=== PATIENT | female | born 1965 | race Hispanic/Latino ===

== ENCOUNTER 2018-03-08 03:29 | Emergency (ER) | payer SELFPAY ==
[~2018-03-08 03:29] MED LIST: LISI10TA7 PO
[2018-03-08] MEDS ORDERED: ONDANSETRON ODT 4 MG TAB ONE (03:52)
[2018-03-08] MEDS ORDERED: LIDOCAINE HCL 1% 20 ML VIAL ONE (03:52)
[2018-03-08] MEDS ORDERED: CEFTRIAXONE SODIUM 1 GM ONE (03:52)
[2018-03-08 03:53] LABS: APPEARANCE,URINE Cloudy (CLEAR); BILIRUBIN,URINE Small (NEGATIVE); COLOR,URINE Dark Yellow (YELLOW); GLUCOSE, URINE (UA) Negative (NEGATIVE); KETONES,URINE Negative (NEGATIVE); LEUKOCYTE ESTERASE ,URINE Large (NEGATIVE); NITRATE,URINE Positive (NEGATIVE); OCCULT BLOOD,URINE Moderate (NEGATIVE); PH,URINE 6.5 (5.0-8.0); PROTEIN,URINE POS 2+ (NEGATIVE)
[2018-03-08 04:03] LABS: BACTERIA,URINE Few /HPF (None Seen); MUCUS,URINE Rare LPF (None Seen); SQUAMOUS EPITHELIAL CELL,UR Few /HPF (0-2); WBC,URINE 26-50 /HPF (0-1)
== END 2018-03-08 04:17 | disposition home or self-care (01) ==
LOC: EDH 03:29
DX: N39.0 Urinary tract infection, site not specified (principal); I10 Essential (primary) hypertension; Z72.0 Tobacco use; Z90.710 Acquired absence of both cervix and uterus
CPT/HCPCS: 81001; 96372; 99283; J0696

== ENCOUNTER 2018-11-30 20:05 | Emergency (ER) | payer OTHER ==
[2018-11-30] MEDS ORDERED: SODIUM CHLORIDE 0.9% 1000ML 1,000 ML IV ONE ×2 (20:36→22:01)
[2018-11-30 20:41] LABS: BASOPHILS % (AUTO) 0.6 % (0.0-5.0); EOSINOPHILS % (AUTO) 1.4 % (0.0-8.0); HEMATOCRIT 42.5 % (36-48); LYMPHOCYTES % (AUTO) 33.2 % (21.0-51.0); MEAN CORPUSCULAR HEMOGLOBIN 31.8 pg (27.0-33.0); MEAN CORPUSCULAR VOLUME 90.8 fL (79-99); MONOCYTES % (AUTO) 3.7 % (3.0-13.0); NEUTROPHILS % (AUTO) 61.1 % (40.0-77.0); NUCLEATED RED BLOOD CELLS 0.1 % (0.0-0.19); PLATELET COUNT (AUTO) 254 K/uL (130-400); RED BLOOD CELL COUNT(AUTO) 4.69 MIL/uL (4.00-5.50); RED CELL DISTRIBUTION WIDTH 12.5 % (11.0-15.5); WHITE BLOOD COUNT (AUTO) 6.8 K/uL (4.8-10.8)
[2018-11-30 21:09] LABS: ALBUMIN 3.9 g/dL (3.5-5.0); BILIRUBIN,TOTAL 0.3 mg/dL (0.2-1.0); CREATININE 1.2 mg/dL (0.5-1.5); POTASSIUM 3.9 mmol/L (3.5-5.1); TOTAL PROTEIN, SERUM 7.7 g/dL (6.0-8.3)
[2018-11-30] MEDS ORDERED: INSULIN HUMULIN R 100 UNIT/ML 3ML ONE (22:02)
[2018-11-30 22:53] LABS: BILIRUBIN,URINE Negative (NEGATIVE); COLOR,URINE Yellow (YELLOW); GLUCOSE, URINE (UA) >=1000 mg/dL (NEGATIVE); KETONES,URINE Negative (NEGATIVE); LEUKOCYTE ESTERASE ,URINE Negative (NEGATIVE); NITRATE,URINE Negative (NEGATIVE); OCCULT BLOOD,URINE Negative (NEGATIVE); PH,URINE 5.5 (5.0-8.0); PROTEIN,URINE Negative (NEGATIVE)
[2018-11-30 22:54] LABS: APPEARANCE,URINE CLEAR (CLEAR)
[2018-11-30 23:05] LABS: BACTERIA,URINE Few /HPF (None Seen); RBC,URINE 0-1 /HPF (0-1); SQUAMOUS EPITHELIAL CELL,UR 0-2 /HPF (0-2); WBC,URINE 0-1 /HPF (0-1)
== END 2018-12-01 00:16 | disposition home or self-care (01) ==
LOC: EDH 20:05
DX: I10 Essential (primary) hypertension (principal); R73.9 Hyperglycemia, unspecified; H53.8 Other visual disturbances; Z90.49 Acquired absence of other specified parts of digestive tract; Z90.710 Acquired absence of both cervix and uterus; Z72.0 Tobacco use
CPT/HCPCS: 36415; 80053; 81001; 82550; 82948 ×3; 84484; 85025; 93005; 96374; 99284; J1815; J7030 ×2

== ENCOUNTER 2019-07-12 09:41 | Inpatient (IN) | payer MEDICARE ==
[~2019-07-12] VITALS: Ht 157.5 cm; Wt 100.2 kg
[2019-07-12 10:01] LABS: BASOPHILS % (AUTO) 0.4 % (0.0-5.0); HEMATOCRIT 41.5 % (36-48); LYMPHOCYTES % (AUTO) 29.1 % (21.0-51.0); MEAN CORPUSCULAR HEMOGLOBIN 32.8 pg (27.0-33.0); MEAN CORPUSCULAR VOLUME 93.8 fL (79-99); MONOCYTES % (AUTO) 2.9 % (3.0-13.0); NEUTROPHILS % (AUTO) 64.6 % (40.0-77.0); PLATELET COUNT (AUTO) 230 K/uL (130-400); RED BLOOD CELL COUNT(AUTO) 4.42 MIL/uL (4.00-5.50); RED CELL DISTRIBUTION WIDTH 13.2 % (11.0-15.5); WHITE BLOOD COUNT (AUTO) 5.8 K/uL (4.8-10.8)
[2019-07-12] MEDS ORDERED: NITROGLYCERIN 1GM/1 INCH PACKET TD ONE (10:02)
[2019-07-12] MEDS ORDERED: ASPIRIN 325 MG TABLET ONE (10:02)
[2019-07-12 10:08] LABS: CREATININE 1.1 mg/dL (0.5-1.5); POTASSIUM 3.7 mmol/L (3.5-5.1)
[2019-07-12 10:10] LABS: INR 0.96 (0.85-1.15); PARTIAL THROMBOPLASTIN TIME 25.4 SEC (26.3-35.5); PROTHROMBIN TIME 10.1 SEC (9.6-11.6)
[2019-07-12 10:12] LABS: ALBUMIN 3.6 g/dL (3.5-5.0); BILIRUBIN,TOTAL 0.3 mg/dL (0.2-1.0); TOTAL PROTEIN, SERUM 7.4 g/dL (6.0-8.3)
[2019-07-12] MEDS ORDERED: MAG HYDROX/AL HYDROX/SIMETH ES 30 ML SUSP UDCUP PO PRN (12:30)
[2019-07-12] MEDS ORDERED: ONDANSETRON HCL 4 MG/2 ML VIAL IV PRN (12:30)
[2019-07-12] MEDS ORDERED: GUAIFENESIN-DM 200/20 MG 10 ML PO PRN (12:30)
[2019-07-12] MEDS ORDERED: DiphenhydrAMINE HCL 50 MG/ML VIAL IV PRN (12:30)
[2019-07-12] MEDS ORDERED: LACTULOSE 20 GM/30 ML UDCUP PO PRN (12:30)
[2019-07-12] MEDS ORDERED: ACETAMINOPHEN 325 MG TAB PO PRN (12:30)
[2019-07-12] MEDS ORDERED: NITROGLYCERIN 0.4 MG SL TAB SL PRN (12:30)
[2019-07-12] MEDS ORDERED: DIPHENHYDRAMINE HCL 25 MG CAPSULE PO PRN (12:30)
[2019-07-12] MEDS ORDERED: HYDRALAZINE HCL 20 MG/ML VIAL IV PRN (12:30)
[2019-07-12 19:54] VITALS: BP 153/91
[2019-07-12] MEDS ORDERED: GLYB2.5 PO (19:59)
[2019-07-12] MEDS ORDERED: METF-446 PO (19:59)
--- NOTE | 2019-07-12 20:01 | NUR ---
ADMISSION ASSESSMENT PATIENT ARRIVED BY STRETCHER FROM EMERGENCY ROOM. PATIENT IS CALM AND ALERT AND ORIENTED X4. NO COMPLAINTS OF CHEST PAIN AT THIS TIME. NO SIGNS OF DISTRESS. NO SHORTNESS OF BREATH. PATIENT WAS TRANSFERRED TO BED. PLACED ON TELEMETRY AND MADE COMFORTABLE. CALL LIGHT GIVEN TO PAIN EXPLAINED TO APPROPRIATELY CALL NURSE FOR ANY NEEDS. BEDSIDE TABLE AND PERSONAL BELONGINGS WITHIN REACH. NO QUESTIONS, CONCERNS, OR NEEDS AT THIS TIME.
[2019-07-12] MEDS: FAMOTIDINE 20MG TAB 20 MG TAB PO SCH (20:30)
[2019-07-12] MEDS: METOPROLOL TARTRATE 25 MG TAB PO SCH (20:30)
[2019-07-12] MEDS: ACETAMINOPHEN 325 MG TAB PO PRN (20:45)
[2019-07-12 23:51] VITALS: BP 142/77
[2019-07-13 03:58] VITALS: BP 128/78
[2019-07-13 04:54] LABS: BASOPHILS % (AUTO) 0.6 % (0.0-5.0); EOSINOPHILS % (AUTO) 3.5 % (0.0-8.0); HEMATOCRIT 39.2 % (36-48); LYMPHOCYTES % (AUTO) 40.5 % (21.0-51.0); MEAN CORPUSCULAR HEMOGLOBIN 32.7 pg (27.0-33.0); MEAN CORPUSCULAR HGB CONC 35.3 g/dL (32.0-36.0); MEAN CORPUSCULAR VOLUME 92.8 fL (79-99); MONOCYTES % (AUTO) 4.9 % (3.0-13.0); NEUTROPHILS % (AUTO) 50.5 % (40.0-77.0); PLATELET COUNT (AUTO) 225 K/uL (130-400); RED BLOOD CELL COUNT(AUTO) 4.22 MIL/uL (4.00-5.50); RED CELL DISTRIBUTION WIDTH 13.2 % (11.0-15.5); WHITE BLOOD COUNT (AUTO) 6.3 K/uL (4.8-10.8)
[2019-07-13 05:05] LABS: POTASSIUM 3.7 mmol/L (3.5-5.1)
[2019-07-13 07:20] VITALS: BP 123/67
--- NOTE | 2019-07-13 07:30 | NUR ---
MD VISIT DR DOBBINS IN TO SEE PT. UPDATED ON PT'S STATUS & PLAN OF CARE REVIEWED. DR DOBBINS REVIEWED PLAN OF CARE W/PT. PT ADMITS TO BEING CURRENT SMOKER & DENIES HAVING A ATM MANAGER. PT TO HAVE TAYA SCAN TODAY AND POSS [facility] BY DR DOBBINS TOMORROW DEPENDING UPON TAYA SCAN RESULTS.
--- NOTE | 2019-07-13 07:35 | NUR ---
AM ASSESSMENT PT LAYING IN BED, HOB ELEVATED 30 DEGREES, RESTING. A/O X 3. NO SOB. NO DISTRESS NOTED. DENIES CHEST PAIN OR DISCOMFORT. DENIES PALPITATIONS. TELE: SR 60s. DENIES N/V AND/OR DIARRHEA. NPO STATUS EXPLAINED, PT TO HAVE TAYA SCAN LATER TODAY. PT DENIES CAFFEINE INTAKE LAST 24 HRS. UP AD LEXIE. INSTRUCTED TO CALL FOR ASSISTANCE. CALL KAUR W/IN REACH.
[2019-07-13] MEDS ORDERED: REGADENOSON 0.4 MG/5 ML PF SYG IVP SCH (10:30)
[2019-07-13 11:20] VITALS: BP 149/102
[2019-07-13] MEDS: METOPROLOL TARTRATE 25 MG TAB PO SCH ×2 (11:34→20:44)
[2019-07-13 15:00] VITALS: BP 135/84
[2019-07-13] MEDS: ASPIRIN 325 MG TABLET PO SCH (15:45)
[2019-07-13] MEDS: FAMOTIDINE 20MG TAB 20 MG TAB PO SCH ×2 (15:45→20:44)
[2019-07-13] MEDS: ENOXAPARIN SODIUM 40 MG/0.4 ML SYRINGE SQ SCH (15:46)
[2019-07-13] MEDS ORDERED: POTASSIUM CHLORIDE 20MEQ/100ML 100 ML IV PRN ×2 (17:15)
[2019-07-13] MEDS ORDERED: POTASSIUM CHLORIDE 10% ELIXIR 20 MEQ/15 ML UDCUP PO PRN (17:15)
[2019-07-13] MEDS ORDERED: POTASSIUM CHLORIDE 20 MEQ ERTAB PO PRN (17:15)
[2019-07-13] MEDS ORDERED: GLUCAGON 1MG KIT 1 MG ML IM PRN (17:15)
[2019-07-13] MEDS ORDERED: DEXTROSE 50%-WATER 50 ML DISP.SYRIN IV PRN (17:15)
[2019-07-13] MEDS ORDERED: LISINOPRIL 20 MG TABLET PO SCH (17:45)
[2019-07-13 19:38] VITALS: BP 151/88
--- NOTE | 2019-07-13 19:42 | NUR ---
cm note met with patient and states resides at home alone, independent with adls and self care.no dme. dc plan is back to home. no dc needs. Addendum: 07/13/19 at 1944 by RAKESH TRINH CM Amended: Links added.
[2019-07-13] MEDS: GUAIFENESIN/DEXTROMETHORPHAN 1 EACH TAB.SR.12H PO SCH (20:44)
[2019-07-13] MEDS: INSULIN HUMULIN R 100 UNIT/ML 3ML SQ SCH (21:00)
[2019-07-13 23:35] VITALS: BP 117/63
[2019-07-14 04:02] VITALS: BP 111/69
[2019-07-14 04:58] LABS: BASOPHILS % (AUTO) 0.4 % (0.0-5.0); EOSINOPHILS % (AUTO) 2.7 % (0.0-8.0); MEAN CORPUSCULAR HEMOGLOBIN 32.4 pg (27.0-33.0); MEAN CORPUSCULAR HGB CONC 34.3 g/dL (32.0-36.0); MEAN CORPUSCULAR VOLUME 94.3 fL (79-99); MONOCYTES % (AUTO) 4.9 % (3.0-13.0); PLATELET COUNT (AUTO) 225 K/uL (130-400); RED BLOOD CELL COUNT(AUTO) 4.24 MIL/uL (4.00-5.50); RED CELL DISTRIBUTION WIDTH 12.9 % (11.0-15.5); WHITE BLOOD COUNT (AUTO) 6.4 K/uL (4.8-10.8)
[2019-07-14 05:07] LABS: POTASSIUM 3.8 mmol/L (3.5-5.1)
[2019-07-14] MEDS: INSULIN HUMULIN R 100 UNIT/ML 3ML SQ SCH ×4 (05:59→21:00)
[2019-07-14 07:18] VITALS: BP 120/65
[2019-07-14] MEDS ORDERED: LISINOPRIL 20 MG TABLET PO SCH (09:00)
[2019-07-14] MEDS: GUAIFENESIN/DEXTROMETHORPHAN 1 EACH TAB.SR.12H PO SCH ×2 (09:00→20:25)
[2019-07-14] MEDS: METOPROLOL TARTRATE 25 MG TAB PO SCH ×2 (09:12→20:21)
[2019-07-14] MEDS: ASPIRIN 325 MG TABLET PO SCH (09:12)
[2019-07-14] MEDS: FAMOTIDINE 20MG TAB 20 MG TAB PO SCH ×2 (09:13→20:20)
[2019-07-14] MEDS: ENOXAPARIN SODIUM 40 MG/0.4 ML SYRINGE SQ SCH (09:15)
[2019-07-14 11:13] VITALS: BP 135/72
[2019-07-14 14:58] VITALS: BP 134/82
[2019-07-14 19:25] VITALS: BP 149/117
--- NOTE | 2019-07-14 20:00 | NUR ---
PT STATES SHE WANTED TO LEAVE AMA. SPOKE TO PT. AWARE OF AMA FORM. PT DECIDED TO STAY DUE TO BILLING ISSUES REGARDING MEDICARE.
[2019-07-14] MEDS: ACETAMINOPHEN 325 MG TAB PO PRN (20:21)
--- NOTE | 2019-07-14 22:00 | NUR ---
DR. NANCY PAK. SPOKE TO PT REGARDING PLAN OF CARE. DISCUSSES LEXISCAN RESULTS. NOTIFIED MIGHT BE POSSIBLE CANDIDATE FOR LHC. PT STARTED ON NEW MEDS. PENDING TO SEE DR. DOBBINS.
[2019-07-14] MEDS ORDERED: TEMAZEPAM 7.5 MG CAPSULE PO PRN (22:15)
[2019-07-14] MEDS ORDERED: ATORVASTATIN CALCIUM 20 MG TABLET PO SCH (22:15)
[2019-07-14 23:12] VITALS: BP 127/66
[2019-07-15 04:08] VITALS: BP 132/74
[2019-07-15 04:12] LABS: BASOPHILS % (AUTO) 0.4 % (0.0-5.0); EOSINOPHILS % (AUTO) 2.7 % (0.0-8.0); HEMATOCRIT 39.4 % (36-48); LYMPHOCYTES % (AUTO) 41.5 % (21.0-51.0); MEAN CORPUSCULAR HEMOGLOBIN 32.5 pg (27.0-33.0); MONOCYTES % (AUTO) 5.1 % (3.0-13.0); NEUTROPHILS % (AUTO) 50.3 % (40.0-77.0); PLATELET COUNT (AUTO) 233 K/uL (130-400); RED BLOOD CELL COUNT(AUTO) 4.24 MIL/uL (4.00-5.50); RED CELL DISTRIBUTION WIDTH 12.8 % (11.0-15.5); WHITE BLOOD COUNT (AUTO) 5.9 K/uL (4.8-10.8)
[2019-07-15 04:26] LABS: POTASSIUM 4.2 mmol/L (3.5-5.1)
[2019-07-15 05:01] LABS: HEMOGLOBIN A1C 6.2 % (4.0-6.0)
[2019-07-15] MEDS: INSULIN HUMULIN R 100 UNIT/ML 3ML SQ SCH (06:46)
[2019-07-15 07:27] VITALS: BP 133/83
--- NOTE | 2019-07-15 08:15 | NUR ---
ROUNDS Dr. Bryan in to see pt, updated on plan of care.Okay to be discharged and follow-up in his office. Dr. Lund made aware.
[2019-07-15] MEDS ORDERED: LISINOPRIL 20 MG TABLET PO SCH (09:00)
[2019-07-15] MEDS: ENOXAPARIN SODIUM 40 MG/0.4 ML SYRINGE SQ SCH (09:37)
[2019-07-15] MEDS: ASPIRIN 325 MG TABLET PO SCH (09:38)
[2019-07-15] MEDS: METOPROLOL TARTRATE 25 MG TAB PO SCH (09:38)
[2019-07-15] MEDS: FAMOTIDINE 20MG TAB 20 MG TAB PO SCH (09:38)
[2019-07-15] MEDS ORDERED: ATOR20TA65 PO (11:20)
[2019-07-15] MEDS ORDERED: METO25 PO (11:20)
[2019-07-15] MEDS ORDERED: LISI40TA4 PO (11:20)
[2019-07-15] MEDS ORDERED: AEC81 PO (11:20)
--- NOTE | 2019-07-15 11:45 | NUR ---
DISCHARGE Pt taken to lobby in wheelchair, in no distress. Instructions given, verbalized understanding. All belongings given to pt. Telepack and peripheral IV removed, catheter intact upon removal.
== END 2019-07-15 12:11 | disposition home or self-care (01) | DRG 281 ==
LOC: EDH 09:41 → EDHIP 12:21 → 2DH 19:52
PROVIDERS: ADMIT Family Medicine; ATTEND Family Medicine
DX: I21.4 Non-ST elevation (NSTEMI) myocardial infarction (principal); Z68.41 Body mass index [BMI] 40.0-44.9, adult; I25.10 Atherosclerotic heart disease of native coronary artery without angina pectoris; F41.9 Anxiety disorder, unspecified; F17.210 Nicotine dependence, cigarettes, uncomplicated; M19.90 Unspecified osteoarthritis, unspecified site; I10 Essential (primary) hypertension; E78.5 Hyperlipidemia, unspecified; E11.649 Type 2 diabetes mellitus with hypoglycemia without coma; E66.9 Obesity, unspecified
CPT/HCPCS: 36415; 71045; 78452; 80048; 80053; 80061; 82550; 82948; 83036; 83880; 84484; 85025; 85610; 85730; 87486; 87581; 87633; 87798; 93005; 93017; 96374; 99291; A9500; G0378; J1650; J1815; J2785

== ENCOUNTER 2019-07-20 07:16 | Inpatient (IN) | payer MEDICARE ==
[2019-07-20] VITALS (10 sets, daily range): BP systolic 110–159; BP diastolic 55–89
[~2019-07-20] VITALS: Ht 157.5 cm; Wt 95.7 kg
[~2019-07-20 07:16] MED LIST changes: +AEC81 PO; +ATOR20TA65 PO; -LISI10TA7 PO; +LISI40TA4 PO; +METF-446 PO; +METO25 PO
[2019-07-20] MEDS ORDERED: ASPIRIN 325 MG TABLET ONE (07:30)
[2019-07-20] MEDS ORDERED: FENTANYL CITRATE PF 50 MCG/1 ML 2ML VIAL ONE ×2 (07:31→09:24)
[2019-07-20] MEDS ORDERED: NITROGLYCERIN 0.4 MG SL TAB SL ONE (07:33)
[2019-07-20] MEDS ORDERED: METOPROLOL TARTRATE 1 MG/ML 5ML VIAL IV ONE (07:33)
[2019-07-20] MEDS ORDERED: NITROGLYCERIN 50 MG/D5% WATER 1 BOT ONE (07:34)
[2019-07-20 07:49] LABS: BASOPHILS % (AUTO) 0.7 % (0.0-5.0); EOSINOPHILS % (AUTO) 2.8 % (0.0-8.0); HEMATOCRIT 44.6 % (36-48); LYMPHOCYTES % (AUTO) 32.2 % (21.0-51.0); MEAN CORPUSCULAR HEMOGLOBIN 32.6 pg (27.0-33.0); MEAN CORPUSCULAR HGB CONC 34.4 g/dL (32.0-36.0); MEAN CORPUSCULAR VOLUME 94.6 fL (79-99); NEUTROPHILS % (AUTO) 59.3 % (40.0-77.0); NUCLEATED RED BLOOD CELLS 0.1 % (0.0-0.19); PLATELET COUNT (AUTO) 267 K/uL (130-400); RED BLOOD CELL COUNT(AUTO) 4.71 MIL/uL (4.00-5.50); RED CELL DISTRIBUTION WIDTH 12.7 % (11.0-15.5)
[2019-07-20 08:12] LABS: B-TYPE NATRIURETIC PEPTIDE 23 pg/mL (0-100)
[2019-07-20] MEDS ORDERED: IOHEXOL 350 MG/ML 100ML INFUS..BTL IV ONE (08:19)
[2019-07-20] MEDS ORDERED: LIDOCAINE HCL 2% 20ML ONE (08:19)
[2019-07-20] MEDS ORDERED: IOHEXOL-350 50ML VIAL IV ONE (08:19)
[2019-07-20] MEDS ORDERED: NITROGLYCERIN 5 MG/ML 10 ML VIAL IV ONE (08:19)
[2019-07-20 08:23] LABS: INR 0.95 (0.85-1.15)
[2019-07-20 08:28] LABS: CREATININE 1.1 mg/dL (0.5-1.5)
[2019-07-20 08:32] LABS: BILIRUBIN,TOTAL 0.4 mg/dL (0.2-1.0)
[2019-07-20] MEDS ORDERED: BIVALIRUDIN 250 MG/VIAL IV ONE (08:40)
[2019-07-20] MEDS ORDERED: ASPIRIN 325MG EC TAB 325 MG TABLET.DR PO ONE (08:56)
[2019-07-20] MEDS ORDERED: PRASUGREL HCL 10 MG TABLET ONE (08:56)
[2019-07-20] MEDS ORDERED: MIDAZOLAM HCL 1 MG/ML 2ML VIAL ONE (09:03)
[2019-07-20] MEDS ORDERED: CLOPIDOGREL BISULFATE 300 MG TAB ONE (09:18)
[2019-07-20] MEDS ORDERED: ADENOSINE 90MG/30ML VIAL IV ONE (09:20)
[2019-07-20] MEDS ORDERED: SODIUM CHLORIDE 0.9% 1000ML 1,000 ML IV SCH (10:12)
[2019-07-20] MEDS ORDERED: ACETAMINOPHEN 325 MG TAB PO PRN (10:15)
--- NOTE | 2019-07-20 11:20 | NUR ---
RECEIVED PATIENT FROM LAUNCH LEADER TRANSPORTED BY RAINA SEALS AND YOEL RN S/P LEFT HEART CATH BY DR. MCCLAIN. RIGHT GROIN DRESSING IS CLEAN, DRY, AND INTACT. NO HEMATOMA, BLEEDING, NOR OOZING TO SITE. FULL ASSESSMENT DONE. INFORMED PATIENT THAT SHE HAS TO BE BEDREST UNTIL 1700. PER YOEL RN, PATIENT HAS BEEN TRYING TO URINATE BUT IS NOT ABLE TO. BEDPAN IN PLACED. FAUCET TURNED ON TO STIMULATE. VITALS MONITORED. CALL LIGHT WITHIN REACH.
--- NOTE | 2019-07-20 11:30 | NUR ---
PATIENT IS CRYING OF SEVERE DISCOMFORT DUE TO INABILITY TO URINATE. INSERTED MORALES CATHETER ORDERED BY DR. MCCLAIN. PROCEDURE DONE ASEPTICALLY. SOON URINE STARTED DRAINING IN THE BAG, PATIENT CRIED MORE AND BEGGED FOR MORALES CATHETER TO BE REMOVED AND FOR HER TO GET UP FROM BED TO TRY TO URINATE IN THE TOILET. SHE SAID IT IS "BURNING REALLY BAD". I INFORMED PATIENT THAT IF I REMOVED MORALES CATHETER I WOULD HAVE TO USE BEDPAN BECAUSE SHE IS STILL ON BEDREST. PATIENT AGREED TO KEEP MORALES CATHETER IN PLACE. SECURED WELL TO RIGHT THIGH.
--- NOTE | 2019-07-20 11:35 | NUR ---
PATIENT CALLED CRYING ONCE AGAIN AND SCREAMING FOR MORALES CATHETER TO BE REMOVED SHE CONTINUES TO FEEL URETHRAL PAIN. MORALES BAG HAS 600 CLEAR URINE OUTPUT. I SPOKE TO DR. BADILLO ABOUT THIS AND MD SAID TO REMOVE MORALES CATHETER. REMOVED MORALES ORDERED. PATIENT VERBALIZED RELIEF.
--- NOTE | 2019-07-20 13:48 | NUR ---
PATIENT COMPLAINS THAT SHE FEELS THAT HER BLADDER IS FULL AND THAT SHE WOULD LIKE TO HAVE A MORALES CATHETER INSERTED ONCE AGAIN. I INFORMED PATIENT THAT WE CAN USE A BEDPAN AT THIS TIME I DO NOT HAVE AN ORDER FOR CATHETER PLACEMENT AT THIS TIME. SHE SAID THAT SHE FEELS MISERABLE AND THAT SHE WILL NOT BE ABLE TO URINATE IN THE BEDPAN. INFORMED DR. BADILLO AND ORDERED FOR MORALES TO BE INSERTED.
--- NOTE | 2019-07-20 13:50 | NUR ---
INSERTED 16F MORALES CATHETER USING ASEPTIC TECHNIQUE. PATIENT DRAINED 200ML OF URINE. ONCE AGAIN, PATIENT BEGGED FOR MORALES TO BE REMOVED BECAUSE OF BURNING SENSATION. AJAY SEALS AND I SPOKE TO PATIENT ABOUT THE RISK OF INFECTION DUE TO MULTIPLE INSERTS AND REMOVAL OF MORALES CATHETER. PATIENT AGREED TO KEEP MORALES CATHETER. URINE SAMPLE SENT FOR URINALYSIS AND CULTURE. SECURED APPROPRIATELY.
[2019-07-20 16:47] LABS: APPEARANCE,URINE Clear (CLEAR); BILIRUBIN,URINE Negative (NEGATIVE); COLOR,URINE Yellow (YELLOW); GLUCOSE, URINE (UA) Negative (NEGATIVE); KETONES,URINE Trace mg/dL (NEGATIVE); LEUKOCYTE ESTERASE ,URINE Small (NEGATIVE); NITRATE,URINE Negative (NEGATIVE); OCCULT BLOOD,URINE Large (NEGATIVE); PROTEIN,URINE Negative (NEGATIVE); UROBILINOGEN,URINE 0.2 mg/dL (0.2-1.0)
[2019-07-20 17:15] LABS: BACTERIA,URINE Few /HPF (None Seen)
[2019-07-20 17:16] LABS: SQUAMOUS EPITHELIAL CELL,UR Rare /HPF (0-2)
[2019-07-20] MEDS: METOPROLOL TARTRATE 25 MG TAB PO SCH (20:30)
[2019-07-20] MEDS ORDERED: ATORVASTATIN CALCIUM 20 MG TABLET PO SCH (21:00)
[2019-07-21 03:40] VITALS: BP 124/66
[2019-07-21 04:20] LABS: HEMATOCRIT 39.9 % (36-48); MEAN CORPUSCULAR HEMOGLOBIN 32.8 pg (27.0-33.0); MEAN CORPUSCULAR VOLUME 93.7 fL (79-99); PLATELET COUNT (AUTO) 254 K/uL (130-400); RED BLOOD CELL COUNT(AUTO) 4.25 MIL/uL (4.00-5.50); RED CELL DISTRIBUTION WIDTH 12.9 % (11.0-15.5); WHITE BLOOD COUNT (AUTO) 8.1 K/uL (4.8-10.8)
[2019-07-21 04:33] LABS: POTASSIUM 3.9 mmol/L (3.5-5.1)
--- NOTE | 2019-07-21 05:45 | NUR ---
Orders Per HOUSEKEEPING SUPERVISOR Nathen curry to D/C murphy catheter
--- NOTE | 2019-07-21 05:51 | NUR ---
S/p Heart Cath Patient groin soft, pedal pulses strong. No s/s bleeding or hematoma. Dressing clean and dry.
[2019-07-21 08:16] VITALS: BP 131/66
[2019-07-21] MEDS: METOPROLOL TARTRATE 25 MG TAB PO SCH (08:27)
--- NOTE | 2019-07-21 08:30 | NUR ---
AM ASSESSMENT PT LAYING IN BED, HOB ELEVATED 30 DEGREES, RESTING. A/O X 3. NO SOB. NO DISTRESS NOTED. DENIES INCISIONAL PAIN OR DISCOMFORT. DENIES PALPITATIONS. TELE: SR 80s. DENIES N/V AND/OR DIARRHEA. RT GROIN DSG DRY & INTACT. PUNCTURE SITE SOFT, NON-TENDER. NO BLEEDING, NO HEMATOMA NOTED. (+) STRONG BILATERAL PEDAL PULSES. BLE PINK & WARM TO TOUCH. UP AD LEXIE. INSTRUCTED TO CALL FOR ASSISTANCE. CALL KAUR W/IN REACH.
[2019-07-21] MEDS ORDERED: PRASUGREL HCL 10 MG TABLET PO SCH (09:00)
[2019-07-21] MEDS ORDERED: ASPIRIN 81 MG EC TAB PO SCH (09:00)
[2019-07-21] MEDS ORDERED: LISINOPRIL 10 MG TABLET PO SCH (09:00)
[2019-07-21 11:00] VITALS: BP 110/63
--- NOTE | 2019-07-21 11:08 | NUR ---
CARDIOLOGY DR DOBBINS'S OFFICE CALLED. PER 'S OFFICE, PT TO BE SEEN & F/U W/[facility] , [facility] W/STENT PERFORMED BY DR Reynaldo MCCLAIN. PT NOT AN "ESTABLISHED" DR DOBBINS PT. PT HAD NOT YET ATTENDED 1st APPT W/DR DOBBINS, APPT SCHEDULED FOR 08/2019. [facility] NOTIFIED. Shala SEVERINO CN ALSO UPDATED.
[2019-07-21] MEDS ORDERED: GLUCAGON 1MG KIT 1 MG ML IM PRN (11:45)
[2019-07-21] MEDS ORDERED: DEXTROSE 50%-WATER 50 ML DISP.SYRIN IV PRN (11:45)
[2019-07-21 15:00] VITALS: BP 118/65
[2019-07-21] MEDS ORDERED: LISI10TA7 PO (15:53)
[2019-07-21] MEDS ORDERED: TICA90TA PO (16:01)
[2019-07-21] MEDS ORDERED: INSULIN HUMULIN R 100 UNIT/ML 3ML SQ SCH (16:30)
--- NOTE | 2019-07-21 16:59 | NUR ---
DC PLAN VISITED WITH PATIENT. PATIENT LIVES ALONE. INDEPENDENT ABLE TO PERFORM ADL'S. PATIENT HAS NO SERVICES OR DME'S. FEELS SAFE TO RETURN HOME. WENT OVER MEDS WITH DR. BLACK. CHANGED TO [facility] GAVE COUPON TO PATIENT. CAN USE MEDICAID OR SELF PAY WITH COUPON. Addendum: 07/21/19 at 1701 by GREGG GILL RN CM Amended: Links added.
--- NOTE | 2019-07-21 17:10 | NUR ---
DISCHARGE VERBAL & WRITTEN DISCHARGE INSTRUCTIONS REVIEWED & GIVEN TO PT. QUESTIONS ENCOURAGED & CLARIFIED. PROPER CARE & ACTIVITY AFTER LHC WITH STENT REVIEWED. NEW PRESCRIBED MEDICATIONS REVIEWED. PT INFORMED PRESCRIPTION TRANSMITTED TO PHARMACY IN FILE. REINFORCED IMPORTANCE OF TAKING MEDICATIONS PRESCRIBED BY MD. STATES UNDERSTANDING. TELE MARY BETH REMOVED. IV DISCONTINUED. PT TO GATHER PERSONAL BELONGINGS. WILL NOTIFY STAFF WHEN DAUGHTER ARRIVES TO TAKE PT HOME.
--- NOTE | 2019-07-21 17:35 | NUR ---
DISCHARGE DAUGHTER HERE TO TAKE PT HOME. PT TAKEN TO PRIVATE VEHICLE VIA WC BY Yasir KILGORE PCP. NO DISTRESS NOTED.
== END 2019-07-21 17:35 | disposition home or self-care (01) | DRG 246 ==
LOC: EDH 07:16 → OBSVTOIN 08:10 → EDHIP 08:10 → 2DH 10:41
PROVIDERS: ADMIT Internal Medicine; ATTEND Internal Medicine
PROC: 4A023N7 Measurement of Cardiac Sampling and Pressure, Left Heart, Percutaneous Approach (ICD-10-PCS; principal; 2019-07-20)
PROC: 027034Z Dilation of Coronary Artery, One Artery with Drug-eluting Intraluminal Device, Percutaneous Approach (ICD-10-PCS; 2019-07-20)
PROC: B2111ZZ Fluoroscopy of Multiple Coronary Arteries using Low Osmolar Contrast (ICD-10-PCS; 2019-07-20)
PROC: B2151ZZ Fluoroscopy of Left Heart using Low Osmolar Contrast (ICD-10-PCS; 2019-07-20)
DX: I22.2 Subsequent non-ST elevation (NSTEMI) myocardial infarction (principal); I50.31 Acute diastolic (congestive) heart failure; I16.1 Hypertensive emergency; I21.9 Acute myocardial infarction, unspecified; I25.110 Atherosclerotic heart disease of native coronary artery with unstable angina pectoris; E03.9 Hypothyroidism, unspecified; E11.9 Type 2 diabetes mellitus without complications; F17.200 Nicotine dependence, unspecified, uncomplicated; M19.90 Unspecified osteoarthritis, unspecified site; E66.9 Obesity, unspecified; E78.5 Hyperlipidemia, unspecified; F41.9 Anxiety disorder, unspecified; Z68.38 Body mass index [BMI] 38.0-38.9, adult; I25.2 Old myocardial infarction; Z90.49 Acquired absence of other specified parts of digestive tract; Z90.710 Acquired absence of both cervix and uterus; I11.0 Hypertensive heart disease with heart failure
CPT/HCPCS: 36415; 71045; 80048; 80053; 81001; 82550; 82948; 83880; 84484; 85025; 85027; 85610; 85730; 87088; 93005; 93458; 93571; 99156; 99157; 99291; A4344; C1725; C1760; C1769; C1887; C1894; C9600; G0378; J0153; J0583; J1644; J2250; J3010; J3490; Q9967

== ENCOUNTER 2019-07-27 03:43 | Emergency (ER) | payer MEDICARE ==
[~2019-07-27 03:43] MED LIST changes: +LISI10TA7 PO; -LISI40TA4 PO; +TICA90TA PO
[2019-07-27] MEDS ORDERED: FAMOTIDINE/PF 20 MG/2 ML VIAL IV ONE (04:00)
[2019-07-27] MEDS ORDERED: METHYLPREDNISOLONE SOD SUCC 125MG/2ML VIAL ONE (04:00)
[2019-07-27] MEDS ORDERED: DiphenhydrAMINE HCL 50 MG/ML VIAL ONE (04:00)
[2019-07-27] MEDS ORDERED: SODIUM CHLORIDE 0.9% 1000ML 1,000 ML IV ONE (04:01)
== END 2019-07-27 06:14 | disposition home or self-care (01) ==
LOC: EDH 03:43
DX: L50.0 Allergic urticaria (principal); F41.9 Anxiety disorder, unspecified; E11.9 Type 2 diabetes mellitus without complications; I10 Essential (primary) hypertension; Z90.49 Acquired absence of other specified parts of digestive tract; Z90.710 Acquired absence of both cervix and uterus; Z87.891 Personal history of nicotine dependence; Z79.899 Other long term (current) drug therapy
CPT/HCPCS: 96374; 96375; 99284; J1200; J2930; J3490; J7030

== ENCOUNTER 2021-05-21 10:01 | Emergency (ER) | payer MEDICARE ==
[~2021-05-21] VITALS: Ht 157.5 cm; Wt 93.0 kg
[~2021-05-21 10:01] MED LIST changes: +LISI10TA24 PO; -LISI10TA7 PO
[2021-05-21 10:04] VITALS: BP 112/52
[2021-05-21 12:19] VITALS: BP 115/56
[2021-05-21] MEDS ORDERED: AMOX-429 PO (12:49)
[2021-05-21] MEDS ORDERED: IBUP-2070 PO (12:49)
== END 2021-05-21 15:21 | disposition home or self-care (01) ==
LOC: EDH 10:01
DX: J01.90 Acute sinusitis, unspecified (principal); I10 Essential (primary) hypertension; E10.9 Type 1 diabetes mellitus without complications; Z79.1 Long term (current) use of non-steroidal anti-inflammatories (NSAID); Z79.82 Long term (current) use of aspirin; Z79.84 Long term (current) use of oral hypoglycemic drugs; Z79.899 Other long term (current) drug therapy; Z98.890 Other specified postprocedural states

== ENCOUNTER 2024-07-29 16:50 | Inpatient (IN) | payer OTHER, MEDICARE ==
[~2024-07-29] VITALS: Ht 162.6 cm; Wt 81.2 kg
[~2024-07-29 16:50] MED LIST changes: +AMOX-429 PO; +IBUP-2070 PO
[2024-07-29 18:21] LABS: BASOPHILS # (AUTO) 0.02 K/uL (0.00-0.20); BASOPHILS % (AUTO) 0.2 % (0.0-5.0); EOSINOPHILS # (AUTO) 0.04 K/uL (0.00-0.70); EOSINOPHILS % (AUTO) 0.4 % (0.0-8.0); HEMATOCRIT 51.7 % (36-48); IMMATURE GRANULOCYTE ABSOLUTE 0.03 K/uL (0-1); LYMPHOCYTES # (AUTO) 2.3 K/uL (1.0-4.8); LYMPHOCYTES % (AUTO) 20.5 % (21.0-51.0); MEAN CORPUSCULAR HEMOGLOBIN 31.4 pg (27.0-33.0); MEAN CORPUSCULAR HGB CONC 35.2 g/dL (32.0-36.0); MEAN CORPUSCULAR VOLUME 89.1 fL (79-99); MONOCYTES # (AUTO) 0.3 K/uL (0.1-1.0); MONOCYTES % (AUTO) 2.2 % (3.0-13.0); NEUTROPHILS # (AUTO) 8.6 K/uL (1.8-7.7); NEUTROPHILS % (AUTO) 76.4 % (40.0-77.0); PLATELET COUNT (AUTO) 312 K/uL (130-400); RED CELL DISTRIBUTION WIDTH 11.8 % (11.0-15.5); WHITE BLOOD COUNT (AUTO) 11.2 K/uL (4.8-10.8)
[2024-07-29 18:42] LABS: ALBUMIN 4.2 g/dL (3.5-5.0); BILIRUBIN,TOTAL 0.6 mg/dL (0.2-1.0); CREATININE 1.4 mg/dL (0.5-1.0); POTASSIUM 4.2 mmol/L (3.5-5.1); TOTAL PROTEIN, SERUM 9.1 g/dL (6.0-8.3)
[2024-07-29 19:22] LABS: ADD UA MICROSCOPIC YES; APPEARANCE,URINE CLOUDY (CLEAR); BILIRUBIN,URINE NEGATIVE (NEGATIVE); COLOR,URINE LIGHT-YELLOW (YELLOW); GLUCOSE, URINE (UA) >=1000 mg/dL (NEGATIVE); KETONES,URINE 60 mg/dL (NEGATIVE); LEUKOCYTE ESTERASE ,URINE 250 Leu/uL (NEGATIVE); NITRATE,URINE NEGATIVE (NEGATIVE); PROTEIN,URINE 50 mg/dL (NEGATIVE); UROBILINOGEN,URINE 0.2 mg/dL (0.2-1.0)
[2024-07-29 19:25] LABS: BACTERIA,URINE RARE /HPF (None Seen); MUCUS,URINE RARE LPF (None Seen); SQUAMOUS EPITHELIAL CELL,UR FEW /HPF (0-2); WBC,URINE 51-100 /HPF (0-1)
[2024-07-29] MEDS: CEFTRIAXONE 2GM VIAL IVPB SCH (20:38)
[2024-07-29] MEDS: 0.9%NACL 1000ML 2,000 ML IV ONE (20:38)
[2024-07-29] MEDS: HEParin 5,000 UNIT VIAL IV PRN (20:40)
[2024-07-29] MEDS: HEParin 25,000 UNITS/250ML D5W 250 ML IV ONE (20:40)
[2024-07-29] MEDS: HEParin 25,000 UNITS/250ML D5W 250 ML IV SCH (20:45)
[2024-07-29] MEDS: ASPIRIN 81MG CHEW TAB PO SCH (21:00)
[2024-07-29] MEDS ORDERED: PoTASSium chl 10% ELIXIR 20MEQ 20 MEQ/15 ML UDCUP PO PRN (21:00)
[2024-07-29] MEDS ORDERED: MAGNESIUM 2GM PREMIX 50ML 50 ML IV PRN (21:00)
[2024-07-29 21:24] LABS: MAGNESIUM 2.2 mg/dL (1.80-2.40); PHOSPHORUS 3.4 mg/dL (2.5-4.9)
[2024-07-29] MEDS ORDERED: LAbetaLOL 20MG SYG IV PRN (22:00)
[2024-07-29] MEDS ORDERED: morPHINE 2 MG SYG IVP PRN (22:00)
[2024-07-29] MEDS: 0.9%NACL 1000ML 1,000 ML IV SCH ×2 (22:00→23:46)
[2024-07-29] MEDS ORDERED: ALBUTEROL 0.083% 2.5 MG/3 ML INH IH PRN (22:00)
[2024-07-29] MEDS: INSULIN REGULAR, HUMAN 3ML 100 UNIT in 0.9%NACL 100ML 99 ML IV PRN (22:00)
[2024-07-29] MEDS ORDERED: acetaMINOPHEN 650 MG SUPPOSITORY RC PRN (22:00)
[2024-07-29] MEDS ORDERED: acetaMINOPHEN 325 MG TAB PO PRN (22:00)
[2024-07-29] MEDS ORDERED: hydrALAZine 20MG/ML VIAL IV PRN (22:00)
[2024-07-29 22:09] LABS: ABG BASE EXCESS -7.1 mmol/L (-2.0-3.0); ABG OXYGEN SATURATION 95.5 % (94.0-98.0); ABG PCO2 31 mmHg (32-45); ABG PH 7.361 (7.350-7.450); PO2, ARTERIAL BG 79.2 mmHg (83.0-108.0); VENT MODE, BG ROOMAIR (ROOM AIR)
[2024-07-29 22:10] VITALS: PULSE 99; RESP 20; O2SAT 97
[2024-07-29 22:51] LABS: RAPID GROUP A STREP negative (NEGATIVE)
[2024-07-29 22:52] LABS: SARS-CoV-2, RNA, NAAT NEGATIVE SARS CoV-2 (NEGATIVE)
[2024-07-29] MEDS: NS-20 MEQ KCL 1000ML 1,000 ML IV ONE (22:55)
[2024-07-29] MEDS: PoTASSium chloRIDE 20MEQ/10ML 20 MEQ in 0.9%NACL 1000ML 1,000 ML IV SCH (22:58)
[2024-07-29 22:59] LABS: INFLUENZA TYPE A Negative For Type A (NEGATIVE); INFLUENZA TYPE B Negative For Type B (NEGATIVE)
[2024-07-29] MEDS ORDERED: DEXTROSE 5 %-0.45 % NACL 1,000 ML IV SCH ×2 (23:00)
[2024-07-29] MEDS ORDERED: 0.9%NACL 1000ML 1,000 ML IV SCH (23:00)
[2024-07-29] MEDS ORDERED: PoTASSium chloRIDE 20MEQ/10ML 20 MEQ in 0.9%NACL 1000ML 1,000 ML IV SCH (23:00)
[2024-07-29] MEDS ORDERED: D5W-1/2 NS/20MEQ KCL 1,000 ML IV SCH (23:00)
[2024-07-29] MEDS ORDERED: INSULIN REGULAR, HUMAN 3ML 100 UNIT in 0.9%NACL 100ML 100 ML IV SCH ×2 (23:00)
[2024-07-29] MEDS ORDERED: MAGNESIUM 2GM PREMIX 50ML 50 ML IV SCH ×2 (23:00)
[2024-07-29] MEDS: atorVAStatin 40 MG TABLET PO SCH (23:06)
[2024-07-29] MEDS: metoPROLOL tartRATE 25 MG TAB PO SCH (23:07)
[2024-07-29] MEDS: ASPIRIN 300 MG SUPPOSITORY PR ONE (23:08)
[2024-07-29] MEDS: PROCHLORPERAZINE 10MG/2ML INJ IV ONE (23:08)
[2024-07-29] MEDS: acetaMINOPHEN 325 MG TAB PO ONE (23:08)
[2024-07-29 23:45] LABS: CREATININE 1.1 mg/dL (0.5-1.0); POTASSIUM 3.6 mmol/L (3.5-5.1)
[2024-07-30] VITALS (26 sets, daily range): BP systolic 96–158; BP diastolic 57–94; PULSE 56–93; RESP 10–22; TEMP 96.7–98.7; O2SAT 94–99
[2024-07-30 01:33] LABS: AMPHET/METH SCREEN,URINE NEGATIVE (NEGATIVE); BARBITURATE SCREEN, URINE NEGATIVE (NEGATIVE); BENZODIAZEPINES SCREEN,URINE NEGATIVE (NEGATIVE); CANNABINOID SCREEN,URINE NEGATIVE (NEGATIVE); COCAINE SCREEN,URINE NEGATIVE (NEGATIVE); OPIATE SCREEN,URINE NEGATIVE (NEGATIVE); PHENCYCLIDINE SCREEN,URINE NEGATIVE (NEGATIVE)
[2024-07-30 01:33] LABS: CREATININE 1.1 mg/dL (0.5-1.0); POTASSIUM 3.9 mmol/L (3.5-5.1)
[2024-07-30] MEDS ORDERED: ondanSETRON 4MG INJ IVP PRN (02:00)
[2024-07-30 04:34] LABS: BASOPHILS # (AUTO) 0.01 K/uL (0.00-0.20); BASOPHILS % (AUTO) 0.1 % (0.0-5.0); HEMATOCRIT 44.7 % (36-48); IMMATURE GRANULOCYTE ABSOLUTE 0.05 K/uL (0-1); LYMPHOCYTES # (AUTO) 1.8 K/uL (1.0-4.8); LYMPHOCYTES % (AUTO) 18.3 % (21.0-51.0); MEAN CORPUSCULAR HEMOGLOBIN 30.8 pg (27.0-33.0); MEAN CORPUSCULAR HGB CONC 34.9 g/dL (32.0-36.0); MEAN CORPUSCULAR VOLUME 88.3 fL (79-99); MONOCYTES # (AUTO) 0.3 K/uL (0.1-1.0); MONOCYTES % (AUTO) 3.4 % (3.0-13.0); NEUTROPHILS # (AUTO) 7.6 K/uL (1.8-7.7); NEUTROPHILS % (AUTO) 77.7 % (40.0-77.0); PLATELET COUNT (AUTO) 230 K/uL (130-400); RED BLOOD CELL COUNT(AUTO) 5.06 MIL/uL (4.00-5.50); RED CELL DISTRIBUTION WIDTH 11.8 % (11.0-15.5); WHITE BLOOD COUNT (AUTO) 9.8 K/uL (4.8-10.8)
[2024-07-30 04:45] LABS: INR 1.09 (0.85-1.15); PROTHROMBIN TIME 11.7 SEC (9.6-11.6)
[2024-07-30 05:09] LABS: CREATININE 1.1 mg/dL (0.5-1.0); MAGNESIUM 1.9 mg/dL (1.80-2.40); PHOSPHORUS 2.1 mg/dL (2.5-4.9); POTASSIUM 3.7 mmol/L (3.5-5.1); THYROID STIMULATING HORMONE 2.27 uIU/mL (0.36-3.74)
[2024-07-30] MEDS: D5W-1/2 NS/20MEQ KCL 1,000 ML IV SCH (05:21)
[2024-07-30 05:44] LABS: PARTIAL THROMBOPLASTIN TIME 99.2 SEC (26.3-35.5)
[2024-07-30] MEDS ORDERED: GLUCAGON 1MG KIT 1 MG ML IM PRN (06:30)
[2024-07-30] MEDS ORDERED: DEXTROSE 50%-WATER 50 ML DISP.SYRIN IV PRN (06:30)
[2024-07-30] MEDS: INSULIN GLARgine 100 UNITS/ML 10 ML VIAL SQ SCH ×2 (06:41→23:58)
[2024-07-30 06:43] LABS: CREATININE 0.9 mg/dL (0.5-1.0); POTASSIUM 3.9 mmol/L (3.5-5.1)
[2024-07-30] MEDS: INSULIN humuLIN R 100 UNIT/ML 3ML SQ SCH ×2 (07:25→11:25)
[2024-07-30] MEDS: CEFTRIAXONE 2GM VIAL IVPB SCH (08:19)
[2024-07-30 10:41] LABS: POTASSIUM 3.9 mmol/L (3.5-5.1)
[2024-07-30] MEDS: MAGNESIUM 2GM PREMIX 50ML 50 ML IV ONE (11:12)
[2024-07-30 15:16] LABS: CREATININE 0.9 mg/dL (0.5-1.0); POTASSIUM 3.4 mmol/L (3.5-5.1)
[2024-07-30] MEDS: metoPROLOL tartRATE 25 MG TAB PO SCH (21:03)
[2024-07-30] MEDS: atorVAStatin 20 MG TABLET PO SCH (21:03)
[2024-07-31 03:07] VITALS: BP 106/90; PULSE 75; RESP 16; TEMP 97.9
[2024-07-31 04:06] LABS: BASOPHILS # (AUTO) 0.04 K/uL (0.00-0.20); BASOPHILS % (AUTO) 0.6 % (0.0-5.0); EOSINOPHILS # (AUTO) 0.17 K/uL (0.00-0.70); EOSINOPHILS % (AUTO) 2.4 % (0.0-8.0); HEMATOCRIT 39.4 % (36-48); IMMATURE GRANULOCYTE ABSOLUTE 0.03 K/uL (0-1); LYMPHOCYTES # (AUTO) 2.5 K/uL (1.0-4.8); LYMPHOCYTES % (AUTO) 35.7 % (21.0-51.0); MEAN CORPUSCULAR HEMOGLOBIN 30.8 pg (27.0-33.0); MEAN CORPUSCULAR HGB CONC 34.8 g/dL (32.0-36.0); MEAN CORPUSCULAR VOLUME 88.5 fL (79-99); MONOCYTES # (AUTO) 0.4 K/uL (0.1-1.0); MONOCYTES % (AUTO) 6.2 % (3.0-13.0); NEUTROPHILS # (AUTO) 3.9 K/uL (1.8-7.7); NEUTROPHILS % (AUTO) 54.7 % (40.0-77.0); PLATELET COUNT (AUTO) 230 K/uL (130-400); RED BLOOD CELL COUNT(AUTO) 4.45 MIL/uL (4.00-5.50); RED CELL DISTRIBUTION WIDTH 12.2 % (11.0-15.5); WHITE BLOOD COUNT (AUTO) 7.1 K/uL (4.8-10.8)
[2024-07-31 04:26] LABS: CREATININE 0.9 mg/dL (0.5-1.0)
[2024-07-31] MEDS: PoTASSium chloRIDE 20MEQ ER 20 MEQ ERTAB PO PRN (04:56)
[2024-07-31] MEDS: PoTASSium chloRIDE 10MEQ/100ML 100 ML IV PRN (04:56)
[2024-07-31] MEDS ORDERED: ROSU10TA72 PO (07:21)
[2024-07-31] MEDS ORDERED: PIOG15TA66 PO (07:22)
[2024-07-31 07:30] VITALS: O2SAT 99
[2024-07-31 08:31] VITALS: BP 122/71; PULSE 65; RESP 18; TEMP 97.9
[2024-07-31] MEDS: PANTOPrazole 40 MG/VIAL IVP SCH (09:07)
[2024-07-31] MEDS: ENOXAPARIN SODIUM 30 MG/0.3 ML SQ SCH (09:12)
[2024-07-31] MEDS ORDERED: INSLAN SQ (11:41)
[2024-07-31] MEDS ORDERED: CEFD300C3 PO (11:42)
[2024-07-31 11:56] VITALS: BP 124/65; PULSE 72; RESP 18; TEMP 98.5
== END 2024-07-31 15:28 | disposition home or self-care (01) | DRG 638 ==
LOC: EDH 16:50 → EDHIP 20:46 → 2CV 23:50 → 2DH 07-30 14:44
PROVIDERS: ADMIT Internal Medicine Critical Care Medicine; ATTEND Internal Medicine Critical Care Medicine
DX: E11.00 Type 2 diabetes mellitus with hyperosmolarity without nonketotic hyperglycemic-hyperosmolar coma (NKHHC) (principal); N17.9 Acute kidney failure, unspecified; N30.00 Acute cystitis without hematuria; E11.10 Type 2 diabetes mellitus with ketoacidosis without coma; E86.0 Dehydration; B96.29 Other Escherichia coli [E. coli] as the cause of diseases classified elsewhere; I25.10 Atherosclerotic heart disease of native coronary artery without angina pectoris; Z95.5 Presence of coronary angioplasty implant and graft; I10 Essential (primary) hypertension; N20.0 Calculus of kidney; K59.00 Constipation, unspecified; E78.5 Hyperlipidemia, unspecified; K57.30 Diverticulosis of large intestine without perforation or abscess without bleeding; E78.00 Pure hypercholesterolemia, unspecified; K44.9 Diaphragmatic hernia without obstruction or gangrene; F17.210 Nicotine dependence, cigarettes, uncomplicated; Z90.710 Acquired absence of both cervix and uterus; Z90.49 Acquired absence of other specified parts of digestive tract; Z79.899 Other long term (current) drug therapy; Z79.84 Long term (current) use of oral hypoglycemic drugs; Z79.82 Long term (current) use of aspirin; Z79.4 Long term (current) use of insulin; Z79.02 Long term (current) use of antithrombotics/antiplatelets
CPT/HCPCS: 36415; 36600; 74176; 80048; 80053; 80061; 80305; 81001; 82010; 82330; 82550; 82803; 82948; 83036; 83605; 83690; 83735; 83880; 84100; 84145; 84443; 84484; 85025; 85610; 85651; 85730; 86140; 87086; 87186; 87635; 87804; 87880; 93005; 93306; 93356; 96365; 96366; 96375; G0378; J0696; J1644; J1650; J1815; J2470; J3475; J3480; J7030

== ENCOUNTER → 2024-12-22 | Outpatient (CLI) | payer OTHER, MEDICARE ==
[~2024-12-22] MED LIST changes: -AMOX-429 PO; -ATOR20TA65 PO; +CEFD300C3 PO; -IBUP-2070 PO; +INSLAN SQ; +PIOG15TA66 PO; +ROSU10TA72 PO; -TICA90TA PO
--- NOTE | 2024-12-26 22:15 | HMCSR ---
APPROVED REPORT TEST INDICATIONS CAD The imaging protocol used to acquire images was Rest Tc-99m / TREADMILL stress Tc-99m 1 day Consent: The procedure was explained and understood by the patient. Informerd consent was witnessed CHESTER MeredithMT First, low dose rest was performed then high dose stress. RESTING DATA: The resting ekg shows: NSR Rest SPECT myocardial perfusion imaging was performed in supine position minutes following the intra venous injection of 10 mCi of Tc-99 Sestamibi. Time of rest injection: 929 Date: 12/22/2024 EXERCISE STRESS: At peak stress, the patient was injected intravenously with 28mCi of Tc-99 Sestamibi. Time of stress injection: 1234 Date: 12/22/2024 Heart Rate at time of stress injection: 136 bpm. Patient continued to exercise for 1 minute(s). The images were gated to evaluate regional wall motion and calculate left ventricular ejection fracti on. STRESS DETAILS Reason for Termination: Reached target heart rate Stress Symptoms: Fatigue Max HR Achieved: 140 bpm Heart Rate response to stress: Accelerated heart rate response to stress. % of APMHR Achieved: 87 Max Blood Pressure: 196/78 mmHg Blood Pressure response to stress: Hypertensive blood pressure response to stress. Exercise duration: 4:19 min Exercise capacity: 4.0METs Highest Stage Achieved: Stage 2: 2.5 mph at 12% grade. Stress ECG: NSR Arrhythmia: No. ST Change: No. Maximum ST Elevation: [address] Depression: [address] Deviation: 0 mm Angina Score during exercise: Non-Limiting Guy Treadmill Score: 0.0 Recovery Stress ECG: NSR Recovery Arrhythmia: No Recovery ST Change: No Recovery Maximum ST Deviation: 0 mm Overall Exercise Capacity: Poor Study quality was good. Lung uptake was Normal. Artifact: No artifact LEFT VENTRICLE Size: The left ventricular size is normal. Systolic Function:The left ventricular systolic function is normal. Wall Motion: No regional wall motion abnormalities noted. The left ventricular ejection fraction was calculated to be 85%.TID = 1.13. LV PERFUSION The rest and stress images show normal perfusion. RV Size/Shape Not well visualized. IMPRESSION Abnormal exercise nuclear stress test. Global LV Function: Normal Stress ECG Summary: Abnormal LV Perfusion Summary: Normal Conclusion Exercise portion: Guy treadmill score of 0. Patient exercised for a total of 4:19, test terminated due to complaints of shortness of breath, fati zeina. She experienced non-limiting angina. 87% of MPHR achieved. Tachycardic and hypertensive response to low level of exercise (SBP 198/78 at peak). No ST-T changes noted. Perfusion analysis: The stress and resting images show normal perfusion. Stress LVEF 85% No transient ischemic dilation of the left ventricle.
== END | disposition home or self-care (01) ==
LOC: RAH 08:50
PROVIDERS: ATTEND Internal Medicine Cardiovascular Disease
DX: I25.10 Atherosclerotic heart disease of native coronary artery without angina pectoris (principal); R53.83 Other fatigue
CPT/HCPCS: 78452; 93017; A9500 ×2

== ENCOUNTER 2025-04-28 23:07 | Emergency (ER) | payer OTHER, MEDICARE ==
[~2025-04-28] VITALS: Ht 157.5 cm; Wt 90.7 kg
[2025-04-28 23:09] VITALS: BP 151/74; PULSE 89; RESP 20; TEMP 98.1
== END 2025-04-29 00:16 | disposition left against medical advice (07) ==
LOC: EDH 23:07
DX: R73.9 Hyperglycemia, unspecified (principal); Z53.21 Procedure and treatment not carried out due to patient leaving prior to being seen by health care provider
CPT/HCPCS: 82948

== ENCOUNTER 2025-05-17 23:37 | Emergency (ER) | payer OTHER, MEDICARE ==
[~2025-05-17] VITALS: Ht 157.5 cm; Wt 90.7 kg
--- NOTE | 2025-05-17 23:40 | NUR ---
UA CUP PROVIDED
[2025-05-17 23:56] LABS: IMMATURE GRANULOCYTE ABSOLUTE 0.02 K/uL (0-1); NUCLEATED RED BLOOD CELLS 0.0 % (0.0-0.19); PLATELET COUNT (AUTO) 250 K/uL (130-400); RED BLOOD CELL COUNT(AUTO) 4.28 MIL/uL (4.00-5.50); RED CELL DISTRIBUTION WIDTH 12.9 % (11.0-15.5); WHITE BLOOD COUNT (AUTO) 6.9 K/uL (4.8-10.8)
[2025-05-17 23:58] LABS: APPEARANCE,URINE CLEAR (CLEAR); GLUCOSE, URINE (UA) 300 mg/dL (NEGATIVE); LEUKOCYTE ESTERASE ,URINE 75 Leu/uL (NEGATIVE); NITRATE,URINE 2+ (NEGATIVE); OCCULT BLOOD,URINE NEGATIVE (NEGATIVE)
[2025-05-17 23:59] LABS: ADD UA MICROSCOPIC YES
[2025-05-18] LABS: SQUAMOUS EPITHELIAL CELL,UR FEW /HPF (0-2)
[2025-05-18 00:04] LABS: CREATININE 1.1 mg/dL (0.5-1.0); GLOMERULAR FILTR. RATE CALC 58.0 mL/min (>90); GLUCOSE,RANDOM 282.0 mg/dL (70-105); SODIUM SERUM 135.0 mmol/L (136-145); UREA NITROGEN, BLOOD 23.0 mg/dL (7-18)
--- NOTE | 2025-05-18 00:10 | ERN ---
General Chief Complaint: Chest Pain Stated Complaint: CHEST PAIN, LEFT ARM PAIN Time Seen by MD: 23:56 Source: patient History of Present Illness Initial Comments 59-year-old female with chest pain to her left upper lateral chest area and numbness to her left arm. States that this is never happened to her before. No other complaints. No fevers no chills no difficulty breathing. No difficulty urinating no nausea no vomiting no diarrhea Allergies: Coded Allergies: No Allergy Information Available (Verified Allergy, Unknown, 12/26/17) Uncoded Allergies: STATES SHE HAS ALLERIGES BUT UNABLE TO RECALL (Allergy, Unknown, 05/17/25) Home Meds Active Scripts Cefdinir (Cefdinir) 300 Mg Capsule, 1 CAP PO BID for 10 Days, #20 CAP 0 Refills Prov:JESUS KEARNEY NP 07/31/24 Insulin Glargine,Hum.rec.anlog (Lantus) 100 Unit/Ml Inj, 15 UNITS SQ BID, #15 ML Prov:JESUS KEARNEY CRITICAL CARE RN 07/31/24 Lisinopril (Lisinopril) 10 Mg Tablet, 20 MG PO DAILY for 30 Days, #30 TAB Prov:NELLY CRUZ Jr., MD 07/21/19 Metoprolol Tartrate (Lopressor) 25 Mg Tab, 25 MG PO BID for 30 Days, #60 TAB Prov:NELLY CRUZ Jr., MD 07/15/19 Aspirin (ASPIRIN 81 MG ECTAB) 81 Mg Ectab, 81 MG PO DAILY for 30 Days, #30 TAB.EC Prov:NELLY CRUZ Jr., MD 07/15/19 Reported Medications Pioglitazone HCl (Pioglitazone HCl) 15 Mg Tablet, 15 MG PO DAILY, TAB 07/31/24 Rosuvastatin Calcium (Rosuvastatin Calcium) 10 Mg Tablet, 20 MG PO HS, TAB 07/31/24 Metformin HCl (Metformin HCl) 1,000 Mg Tablet, 1000 MG PO DAILY, TAB 07/12/19 Past Medical History Past Medical History: CVA, Diabetes-Type II, Hypertension Past Surgical History: Hysterectomy, Cholecystectomy Surgical History Other: CARDIAC STENTS Constitutional: (-) chills, (-) diaphoresis, (-) fever, (-) malaise, (-) weakness, (-) other documentation EENTM: (-) eye pain, (-) blurred vision, (-) tearing, (-) double vision, (-) ear pain, (-) ear discharge, (-) nose pain, (-) nose congestion, (-) throat pain, (-) Throat swelling, (-) mouth pain, (-) tooth pain, (-) mouth swelling, (-) other documentation Respiratory: (-) cough, (-) orthopnea, (-) short of breath, (-) stridor, (-) wheezing, (-) other documentation Cardiovascular: (+) chest pain Gastrointestinal/Abdominal: (-) nausea, (-) vomiting, (-) diarrhea, (-) abdominal pain, (-) abdominal distention, (-) constipation, (-) rectal bleeding, (-) dark stool/melena, (-) other documentation Genitourinary: (-) vaginal discharge, (-) vaginal bleeding, (-) dysuria, (-) frequency, (-) hematuria, (-) pain, (-) other documentation Musculoskeletal: (-) Neck pain, (-) back pain, (-) Flank Pain, (-) joint pain, (-) joint swelling, (-) muscle pain, (-) muscle stiffness, (-) gout, (-) other documentation Physical Exam General Appearance: (+) no apparent distress Orientation: (+) alert Head/Face Trauma: No Eye: bilateral eye normal inspection, bilateral eye PERRL, bilateral eye EOMI Ear, Nose, Throat: (+) hearing grossly normal, (+) normal ENT inspection Neck: (+) normal inspection, (+) supple, (+) full range of motion Respiratory: (+) chest non-tender, (+) lungs clear, (+) well ventilated Heart: (+) regular, (+) no gallop Vascular: (+) no edema Gastrointestinal: (+) soft, (+) non-tender, (+) bowel sound present Results Laboratory and Microbiology Lab and Micro Result Laboratory Tests Test 05/17/25 23:45 05/17/25 23:49 Urine Color LIGHT-YELLOW (YELLOW) Urine Appearance CLEAR (CLEAR) Urine pH 5.5 (5.0-8.0) Urine Specific Edison 1.020 (1.001-1.031) Urine Protein NEGATIVE mg/dL (NEGATIVE) Urine Glucose (UA) 300 mg/dL (NEGATIVE) H Urine Ketones NEGATIVE mg/dL (NEGATIVE) Urine Occult Blood NEGATIVE (NEGATIVE) Urine Nitrate 2+ (NEGATIVE) H Urine Bilirubin NEGATIVE mg/dL (NEGATIVE) Urine Urobilinogen 0.2 mg/dL (0.2-1.0) Urine Leukocyte Esterase 75 Shellie/uL (NEGATIVE) H Urine RBC 2-5 /HPF (0-1) H Urine WBC 26-50 /HPF (0-1) H Urine Squamous Epithelial Cells FEW /HPF (0-2) Urine Bacteria RARE /HPF (None Seen) Urine Hyaline Casts 2-5 /LPF (0-1 /LPF) H White Blood Count 6.9 K/uL (4.8-10.8) Red Blood Count 4.28 MIL/uL (4.00-5.50) Hemoglobin 13.4 g/dL (12.0-16.0) Hematocrit 39.7 % (36-48) Mean Corpuscular Volume 92.8 fL (79-99) Mean Corpuscular Hemoglobin 31.3 pg (27.0-33.0) Mean Corpuscular Hemoglobin Concent 33.8 g/dL (32.0-36.0) Red Cell Distribution Width 12.9 % (11.0-15.5) Platelet Count 250 K/uL (130-400) Mean Platelet Volume 10.1 fL (7.5-10.5) Immature Granulocyte % (Auto) 0.3 % (0-1) Neutrophils (%) (Auto) 62.2 % (40.0-77.0) Lymphocytes (%) (Auto) 30.2 % (21.0-51.0) Monocytes (%) (Auto) 4.4 % (3.0-13.0) Eosinophils (%) (Auto) 2.5 % (0.0-8.0) Basophils (%) (Auto) 0.4 % (0.0-5.0) Neutrophils # (Auto) 4.3 K/uL (1.8-7.7) Lymphocytes # (Auto) 2.1 K/uL (1.0-4.8) Monocytes # (Auto) 0.3 K/uL (0.1-1.0) Eosinophils # (Auto) 0.17 K/uL (0.00-0.70) Basophils # (Auto) 0.03 K/uL (0.00-0.20) Absolute Immature Granulocyte (auto 0.02 K/uL (0-1) Nucleated Red Blood Cells 0.0 % (0.0-0.19) Sodium Level 135 mmol/L (136-145) L Potassium Level 3.9 mmol/L (3.5-5.1) Chloride Level 100 mmol/L (101-111) L Carbon Dioxide Level 27 mmol/L (21-32) Blood Urea Nitrogen 23 mg/dL (7-18) H Creatinine 1.1 mg/dL (0.5-1.0) H Glomerular Filtration Rate Calc 58 mL/min (>90) Random Glucose 282 mg/dL (70-105) H Total Calcium 8.9 mg/dL (8.5-10.1) Total Creatine Kinase 167 U/L (21-232) # Troponin I High Sensitivity 5 ng/L (4-50) MDM MDM: Differential diagnosis: Acute IL, PE, radiculopathy, dehydration, hypocalcemia gum Rationale: Tests considered and ordered secondary to shared decision making include: Previous outside records reviewed: Old ER visits. Risk of complication and/or morbidity or mortality of patient management: None Medications-Per medication reconciliation Need for hospitalization: Patient does meet criteria for hospitalization. Need for emergency major/minor surgery: No There are no social concerns with this patient. Prescription drug management Prescriptions will include symptomatic care Patient's prior external medical records from other ER visits were reviewed by me as indicated. Prior testing and results from previous visits were reviewed. Prior tests were taken into account with medical decision making and resource utilization, independent historian/historians were used to obtain complete medical history. I independently interpreted the test that were performed, results were reviewed by me and considered findings on radiology if ordered. Patient's chemistry studies and CBC are normal. His UA shows a urinary tract infection. The patient does feel better after receiving her L of fluids. Discharge her home with antibiotics for her UTI. ED Course Orders Procedure Category Date Status Time Vital Signs Per CPOE 05/17/25 Transmitted Routine 23:38 Chest 1vw RAD 05/17/25 Taken 23:38 12 Lead Ekg Tracing- EKG 05/17/25 Logged Technical 23:38 Oxygen By Nc/Pulse Ox CPOE 05/17/25 Transmitted 23:38 Maintain Iv CPOE 05/17/25 Transmitted 23:38 Iv Insertion CPOE 05/17/25 Transmitted 23:38 Cardiac Monitoring CPOE 05/17/25 Transmitted 23:38 Pulse Oximetry With CPOE 05/17/25 Transmitted Vs And Prn 23:38 Cbc With Differential LAB 05/17/25 Complete 23:38 Activity: Br W/Brp CPOE 05/17/25 Transmitted With Assist 23:38 Creatine Kinase, Total LAB 05/17/25 Complete 23:38 Troponin I High LAB 05/17/25 Complete Sensitivity 23:38 Urinalysis Profile LAB 05/17/25 Complete 23:38 Basic Metabolic Panel LAB 05/17/25 Complete 23:38 Culture Urine JD 05/17/25 Logged 23:59 Lactated Ringers PHA 05/18/25 Complete 1000ml (Lactated 00:06 Orphenadrine Citrate PHA 05/18/25 Complete (Norflex) 00:30 Current Medications Medications (Trade) Dose Ordered Sig/Jessica Route PRN Reason Start Time Stop Time Status Last Admin Dose Admin Lactated Ringer's (Lactated Ringers 1000ml) 1,000 ml BOLUS STAT IV 05/18/25 00:06 05/18/25 00:09 DC 05/18/25 00:30 Orphenadrine Citrate (Norflex) 60 mg ONCE ONCE IVP 05/18/25 00:30 05/18/25 00:31 DC 05/18/25 00:30 Vital Signs Date Time Temp Pulse Resp B/P (MAP) Pulse Ox O2 Delivery O2 Flow Rate FiO2 05/18/25 00:31 98.2 74 16 146/73 98 Room Air* 0 21 05/17/25 23:38 97.2 81 16 168/83 98 Room Air DX & DISP Disposition: Discharge Departure Impression: Primary Impression: Urinary tract infection Additional Impression: Dehydration Condition: Stable Scripts Nitrofurantoin Macrocrystal (Nitrofurantoin) 100 Mg Capsule 1 CAP PO BID for 7 Days, #14 CAP 0 Refills Prov: WALI MITCHELL MD 05/18/25 Additional Instructions: Your cardiac workup is negative for cardiac disease. Your symptoms did improve with IV fluids and medications. You do have a urinary tract infection. I have sent a prescription for antibiotics to your pharmacy. Please follow-up with your primary care physician if your symptoms return. Drink plenty of fluids so that your urine runs clear at least once a day. Referrals: CLAUDETTE SAMSON M.D. (PCP) WALI MITCHELL MD May 18, 2025 00:10
[2025-05-18 00:26] LABS: CREATINE KINASE, TOTAL 167.0 U/L (21-232)
[2025-05-18] MEDS: LACTATED RINGERS 1000ML IV STA (00:30)
[2025-05-18] MEDS: ORPHENADRINE 60MG/2ML IVP ONE (00:30)
--- NOTE | 2025-05-18 01:10 | HMCIMG ---
EXAM: CR Chest, 1 view CLINICAL HISTORY: Chest pain. COMPARISON: Chest radiograph dated 07/20/2019. FINDINGS: The lungs show no infiltrates or other acute findings. No pleural effusion or pneumothorax. The cardiomediastinal silhouette is within normal limits. No acute osseous abnormality. IMPRESSION: No acute cardiopulmonary process is evident. No interval changes. /[place]
[2025-05-18] MEDS ORDERED: NITR100C PO (01:13)
[2025-05-18 01:18] VITALS: BP 135/70; PULSE 70; RESP 16; TEMP 98; O2SAT 99
--- NOTE | 2025-05-18 06:21 | EKG ---
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
== END 2025-05-18 01:24 | disposition home or self-care (01) ==
LOC: EDH 23:37
DX: N39.0 Urinary tract infection, site not specified (principal); E86.0 Dehydration; E11.9 Type 2 diabetes mellitus without complications; I10 Essential (primary) hypertension; Z79.4 Long term (current) use of insulin; Z79.82 Long term (current) use of aspirin; Z79.84 Long term (current) use of oral hypoglycemic drugs; Z79.899 Other long term (current) drug therapy; Z86.73 Personal history of transient ischemic attack (TIA), and cerebral infarction without residual deficits; Z90.49 Acquired absence of other specified parts of digestive tract; Z90.710 Acquired absence of both cervix and uterus; Z95.5 Presence of coronary angioplasty implant and graft
CPT/HCPCS: 99283; 71045; 82550; 84484; 80048; 85025; 87086 ×2; 87186; 81001; 36415; 93005; 96374; 96361; J7120; J2360